=== PATIENT | male | born 1985 ===

== ENCOUNTER 2017-03-16 14:38 | Emergency (ER) | payer SELFPAY ==
[2017-03-16 14:59] VITALS: RESP 16
--- NOTE | 2017-03-16 15:53 | EDPHY ---
H & P Stated Complaint: found wandering down h[address], pants down, from residential? non- verbal HPI/ROS: CHIEF COMPLAINT: HISTORY OF PRESENT ILLNESS: This is a 23-year-old male brought to the emergency department by family that is caring for him. His medical history is mostly unknown to me. Apparently he has a traumatic brain injury. The concern today was that, while his lawn caretaker was in the shower, he left the house and wondered quite a distance. Apparently his pants were not properly fastened/ zipped. There is no report of his exposing himself to others. He has had no change in behavior. He has not been agitated or aggressive. He does not take any medications. The family that is caring for him at this time has known him for years and is a good friend of his mother. They state that his behavior is at baseline. He is verbal only when he is comfortable, per their report. REVIEW OF SYSTEMS: Unable to obtain. - Personal History Current Tetanus/Diphtheria Vaccine: Unsure Current Tetanus Diphtheria and Acellular Pertussis (TDAP): Unsure - Medical/Surgical History Hx Asthma: No Hx Chronic Respiratory Disease: No Hx Diabetes: No Hx Cardiac Disease: No Hx Renal Disease: No Hx Cirrhosis: No Hx Alcoholism: No Hx HIV/AIDS: No Hx Splenectomy or Spleen Trauma: No Other PMH: possible schitzophrenia, TBI, PTSD - Social History Smoking Status: Unknown if ever smoked Alcohol Use: None Drug Use: None Additional Social History: Lives with his family. - Physical Exam Exam: General: Disheveled. Lying quietly, no verbalization to me. BP137/97 in triage, 139/85 at [place]. HR 110 in triage, 103 at [place]. HEENT: Normocephalic, atraumatic. Conjunctiva clear, anicteric. Dry oral mucosa. Neck: Supple, no lymphadenopathy. Lungs: CTA. Cor: RRR, no murmur, rub, or gallop. Abdomen, Soft, nontender, nondistended. Normal bowel sounds. No organomegaly. Extremities: Nontender over long bones. Pulses: 2+ bilateral radial pulses. Neuro: Moving all four extremities spontaneously. PERRL. EOMI. Tongue midline. Facial expressions symmetric. Will follow commands for members of the family that accompany him. Psych: No agitation. Constitutional: Initial Vital Signs Temperature (C) 36.3 C 03/16/17 14:52 Heart Rate 113 H 03/16/17 14:52 Respiratory Rate 16 03/16/17 14:52 Blood Pressure 137/97 H 03/16/17 14:52 O2 Sat (%) 97 03/16/17 14:52 O2 Delivery Mode Room Air Allergies/Adverse Reactions: Unable to Assess Allergy (Unverified 03/16/17 14:59) Medical Decision Making ED Course/Re-evaluation: 31 year old male with possible TBI and/or psychiatric illness. No report of trauma. Found wandering after apparently leaving the house while his lawn caretaker was showering. Caretakers are present and report that he is at baseline. They do not feel that he needs additional evaluation, and I agree. I do not suspect abuse. I do not think that he needs a psychiatric evaluation and do not detect any danger to himself or others. He has not been aggressive or agitated. I am comfortable with him returning home with his caretakers. Departure - Departure Disposition: Home, Routine, Self-Care Clinical Impression: Wandering Condition: Good Instructions: Cognitive Disorders after Traumatic Brain Injury (ED) Additional Instructions: As we discussed, try to be sure that someone is around when you need to be in the shower or otherwise unable to watch him closely. If you have any problems with his behavior please feel free to return. I do not know where he receives his medical care but I am giving you information about [facility]. Referrals: [facility],. [Clinic] - As per Instructions Print Language: Georgian
[2017-03-16 16:18] VITALS: BP 139/85; PULSE 95; TEMP 97.9; O2SAT 96
== END 2017-03-16 16:18 | disposition home or self-care (01) ==
LOC: EDBD 14:38
DX: Z00.01 Encounter for general adult medical examination with abnormal findings (principal); Z91.83 Wandering in diseases classified elsewhere